=== PATIENT | male | born 2000 | race American Indian/Alaskan Native ===

== ENCOUNTER 2022-03-05 10:28 | Emergency (ER) | payer SELFPAY ==
[2022-03-05 11:23] VITALS: BP 123/63
[2022-03-05] MEDS ORDERED: AZITHROMYCIN 250 MG TAB PO ONE (14:17)
[2022-03-05] MEDS ORDERED: LIDOCAINE-MPF (1%) 10 MG/1 ML VIAL 5 ML INFILTRATI ONE (14:17)
--- NOTE | 2022-03-05 14:58 | Emergency Department Report ---
ED Male HPI - General Chief complaint: Urogenital-Male Stated complaint: PENIS PAIN Time Seen by Provider: 03/05/22 14:14 Source: patient Mode of arrival: Ambulatory Limitations: No Limitations - Related Data Allergies Allergy/AdvReac Type Severity Reaction Status Date / Time No Known Allergies Allergy Verified 03/05/22 14:40 ED Review of Systems ROS: Stated complaint: PENIS PAIN Other details as noted in HPI ED Physical Exam - General Limitations: No Limitations ED Course Vital Signs 03/05/22 11:19 Temperature 98.7 F Pulse Rate 76 Respiratory 16 Rate Blood Pressure 123/63 [Right] O2 Sat by Pulse 99 Oximetry Critical care attestation.: If time is entered above; I have spent that time in minutes in the direct care of this critically ill patient, excluding procedure time. ED Disposition Clinical Impression: Urethritis Disposition: 01 HOME / SELF CARE / HOMELESS Is pt being admited?: No Does the pt Need Aspirin: No Condition: Stable Instructions: Urethritis, Adult Additional Instructions: Practice safe sex. Notify partners so that they can be tested and treated. Follow-up with your primary care provider. Return to the emergency department as needed. Referrals: BEKA HERNANDEZ MD [Staff Physician] - 3-5 Days Forms: STI Treatment and Prevention Time of Disposition: 14:57
== END 2022-03-05 15:00 | disposition home or self-care (01) ==
LOC: ED 10:28
DX: N34.2 Other urethritis (principal)
CPT/HCPCS: 96372; 99282; J0696; J3490